=== PATIENT | female | born 1960 | race Caucasian/White ===

== ENCOUNTER → 2016-08-08 | Outpatient (CLI) | payer OTHER ==
[~2016-08-08] MED LIST: 'TENORMIN50 MG PO; A-CILLIN500 MG; ALBUTEROL0.09 MG/A2 IH; AMOXICILLIN500 MG PO; ANAPROX DS550 MG PO; ASPIRIN81 M1 PO; ATENOLOL25 MG PO; ATENOLOL50 MG PO; ATIVAN1 MG PO; AUGMENTIN 875 M1 TA1 PO; AUGMENTIN 875 M1 TAB PO; AUGMENTIN 875875 MG PO; BENADRYL25 MG PO; BIAXIN500 MG PO; BROMOCRIPTINE ME5 MG PO; CELEXA20 MG PO; CEPHULAC10 GM/15 M PO; CIPRO500 MG PO; CLARITIN10 MG PO; COMPAZINE10 MG PO; DOXYCYCLINE MO100 MG PO; FLAGYL500 MG PO; FLONASE 0.05% 121 EA NAS; MACROBID100 M1 PO; MEDROL DOSEPAK4 MG PO; NIX CREME RINSE60 ML TP; NIZORAL 120 ML120 ML TP; PHENERGAN W/DM120 ML PO; PHENERGAN25 M1 PO; PREDNICOT20 MG PO; PROVENTIL0.09 MG/AC IH; SYNTHROID0.05 MG PO; SYNTHROID0.075 MG PO; TOPAMAX25 M3 PO; TRAZADONE HYDR100 MG PO; ULTRAM50 MG PO; VENTOLIN H0.09 MG/AC INH; VIBRAMYCIN100 MG PO; ZANTAC150 MG PO; ZESTRIL5 MG PO; ZITHROMAX Z PA250 MG PO; ZOCOR20 MG PO; ZYRTEC10 MG PO; [UNRECOGNIZED DRUG - REMARK]
== END | disposition home or self-care (01) ==
LOC: US 18:56
DX: M79.89 Other specified soft tissue disorders (principal)

== ENCOUNTER 2016-08-12 18:41 | Inpatient (IN) | payer OTHER ==
[~2016-08-12] VITALS: Ht 167.6 cm; Wt 70.5 kg
--- NOTE | ~2016-08-12 | CON ---
[place], [place] REPORT OF CONSULTATION NAME: MORALES ARCINIEGA UNIT #: [id number] ROOM: 404 DOCTOR: JULIO MCCAULEY ED.D (MELISA) BIRTHDATE: [birth year] DOS: 08/13/2016 HISTORY OF PRESENT ILLNESS: The patient is a 55-year-old female referred by Dr. Dick for an evaluation following an overdose of atenolol. At the present time, she is in the intensive care unit at [facility]. The patient states she is and has 3 children. Her daughter has a heroin addiction issue and one is son in a wheelchair. She has multiple family issues according to her report. She is on SSI, because of her disability. This patient's medical history is pertinent for depression, CVA, Hodgkin's lymphoma, chronic hypothyroidism. Her medications include Synthroid, Topamax, and Ativan. She takes Topamax for her headaches. She does not use any alcoholic beverages or tobacco related products. This patient is awake, alert and oriented in all 3 spheres. Her short and long-term memory is intact, but she reports feeling depressed. She is no longer suicidal, but did admit to taking 60 atenolol because she was overwhelmed by their family situations. She is willing to follow up with outpatient counseling and also medications and she was started on Remeron and Vistaril by Dr. Vázquez. She can follow with me, the family health clinic, the counseling center or Dr. Murillo's office, whichever she chooses. She was familiar with all those facilities. DIAGNOSIS: Major depressive disorder, recurrent. RECOMMENDATIONS: 1. This patient should take medications as prescribed. 2. The patient should follow up outpatient counseling. 3. The patient may be discharged when medically stable. Thank you very much for this consult. JULIO MCCAULEY ED.D CM:CONSTR:REPORT OF CONSULTATION 1209 08/14/16 0018 interface
--- NOTE | ~2016-08-12 | CON ---
[place], [place] REPORT OF CONSULTATION NAME: MORALES ARCINIEGA UNIT #: [id number] ROOM: 404 DOCTOR: RUSSELL PARISI MD BIRTHDATE: [birth year] DOS: 08/13/2016 PSYCHIATRIC CONSULTATION CHIEF COMPLAINT: "I am so depressed. I just didn't think I could go on." HISTORY OF PRESENT ILLNESS: This is a 55-year-old white female who was admitted to the ICU after an intentional overdose. The patient was dropped off in the parking lot of the Emergency Room and was found there crying when she was brought into the Emergency Room, she did report that she took approximately 20 pills of atenolol that were 50 mg each, she states that she did this in an attempt to harm herself because she felt so depressed and disgusted with life. She endorsed poor sleep and appetite, energy, anhedonia, hopeless, helpless feelings, crying spells, and inability to cope with free riding anxiety throughout the day. She denies having gone to see any psychiatrist or counselor in the past, but feels she needs to do so. She is open to having medications added and adjusted. PAST MEDICAL HISTORY: Remarkable for CVA, Hodgkin's lymphoma, thyroid nodule, hyperlipidemia, hypothyroidism and hypertension. MENTAL STATUS: The patient is alert and oriented to person, place, and time. Mood is overwhelmingly depressed. Affect is flat, blunted with a constricted range. There is no hypomania or carmen. There are no acute auditory or visual hallucinations. No delusions or paranoia present. Memory is intact. DIAGNOSIS: Major depression, recurrent and anxiety disorder, not otherwise specified. PLAN: I will start her on Remeron 15 mg at bedtime to rapidly aid sleep and improve appetite and combat depression. We will also utilize hydroxyzine 50 mg t.i.d. as a nonaddicting antianxiety agent. I would suggest she follow up at [facility] with a counselor there of her choice and also follow up with either Kaylee or Jo, nurse practitioners who can monitor her psychiatric medications. RUSSELL PARISI MD CM:CONSTR:REPORT OF CONSULTATION 0848 08/13/16 1126 interface
[2016-08-12 18:56] VITALS: BP 173/88
[2016-08-12 19:06] VITALS: BP 163/93
[2016-08-12 19:13] LABS: BASO # 0.1 10*3/uL (0.0-0.1); BASO % 1.2 % (0.0-1.0); EOS # 0.2 10*3/uL (0.0-0.4); EOS % 2.4 % (1.0-4.0); HEMATOCRIT 40.3 % (37.0-47.0); HEMOGLOBIN 13.5 g/dl (12.0-16.0); LYMPH # 3.6 10*3/uL (1.3-4.4); LYMPH % 39.9 % (27.0-41.0); MEAN CELL VOLUME 92.4 fl (81.0-99.0); MEAN CORPUSCULAR HGB CONC 33.5 g/dl (33.0-37.0); MEAN PLATELET VOLUME 9.8 fl (9.6-12.3); MONO # 0.8 10*3/uL (0.1-1.0); MONO % 9.3 % (3.0-9.0); NEUT # 4.2 10*3/uL (2.3-7.9); PLATELET COUNT AUTOMATED 394 10*3/uL (130-400); RED BLOOD COUNT 4.36 10*6/uL (4.10-5.10); RED CELL DISTRI WIDTH 13.3 % (0-14.5)
[2016-08-12 19:28] LABS: ALBUMIN 3.8 gm/dl (3.1-4.5); ALKALINE PHOSPHATASE 75 U/L (45-117); BILIRUBIN, TOTAL 0.2 mg/dl (0.2-1.0); BUN 16 mg/dl (7-24); CARBON DIOXIDE 26 mmol/L (21-32); CHLORIDE 111 mmol/L (98-107); EST GLOM FILT AFRICAN AMERICAN > 60 ml/min; GLUCOSE 109 mg/dL (65-99); POTASSIUM 3.6 mmol/L (3.5-5.1); SGOT/AST 19 IU/L (3-35); SGPT/ALT 31 U/L (12-78); SODIUM 143 mmol/L (136-145); TOTAL PROTEIN 7.1 gm/dL (6.4-8.2)
[2016-08-12 20:02] LABS: BILIRUBIN NEGATIVE (NEGATIVE); BLOOD TRACE-LYSED (NEGATIVE); CLARITY CLEAR (CLEAR); COLOR YELLOW (YELLOW); GLUCOSE NEGATIVE (NEGATIVE); KETONE NEGATIVE (NEGATIVE); LEUKO ESTERASE 1+ (NEGATIVE); NITRITE NEGATIVE (NEGATIVE); PROTEIN NEGATIVE (NEGATIVE); UROBILINOGEN 0.2 E.U./dl (0.2-1.0)
[2016-08-12 20:09] VITALS: BP 122/73
[2016-08-12 20:09] LABS: BACTERIA 2+; EPITHELIAL CELLS 15-20; RBC 16-20 rbc/hpf (0-2); URINE REFLEX COMMENT YES (NO)
[2016-08-12 20:12] LABS: URINE AMPHETAMINES < 1000 (1000ng/ml); URINE BARBITURATES < 200 (200ng/ml); URINE COCAINE < 300 (300ng/ml)
[2016-08-12 20:31] VITALS: BP 152/80
[2016-08-12 20:41] VITALS: BP 120/100
[2016-08-13] VITALS: BP 113/65
[2016-08-13 04:00] VITALS: BP 112/52
[2016-08-13 05:56] LABS: BASO # 0.1 10*3/uL (0.0-0.1); BASO % 0.9 % (0.0-1.0); EOS # 0.3 10*3/uL (0.0-0.4); HEMATOCRIT 37.5 % (37.0-47.0); HEMOGLOBIN 12.3 g/dl (12.0-16.0); LYMPH % 35.5 % (27.0-41.0); MEAN CELL VOLUME 94.5 fl (81.0-99.0); MEAN CORPUSCULAR HGB CONC 32.8 g/dl (33.0-37.0); MEAN PLATELET VOLUME 10.2 fl (9.6-12.3); MONO # 0.9 10*3/uL (0.1-1.0); MONO % 10.3 % (3.0-9.0); NEUT # 4.3 10*3/uL (2.3-7.9); NEUT % 49.9 % (47.0-73.0); PLATELET COUNT AUTOMATED 379 10*3/uL (130-400); RED BLOOD COUNT 3.97 10*6/uL (4.10-5.10); RED CELL DISTRI WIDTH 13.3 % (0-14.5); WHITE BLOOD COUNT 8.6 10*3/uL (4.8-10.8)
[2016-08-13 06:19] LABS: ALBUMIN 3.1 gm/dl (3.1-4.5); ALKALINE PHOSPHATASE 64 U/L (45-117); BILIRUBIN, TOTAL 0.2 mg/dl (0.2-1.0); BUN 15 mg/dl (7-24); CARBON DIOXIDE 26 mmol/L (21-32); CHLORIDE 114 mmol/L (98-107); CHOLESTEROL 132 mg/dL (<200); EST GLOM FILT AFRICAN AMERICAN > 60 ml/min; GLUCOSE 81 mg/dL (65-99); HDL CHOLESTEROL 46 mg/dl (40-60); LDL CHOLESTEROL 63 mg/dL (9-159); MAGNESIUM 2.1 mg/dL (1.5-2.1); PHOSPHOROUS 3.5 mg/dL (2.5-4.9); POTASSIUM 3.6 mmol/L (3.5-5.1); SGOT/AST 13 IU/L (3-35); SGPT/ALT 24 U/L (12-78); SODIUM 146 mmol/L (136-145); TRIGLYCERIDES 116 mg/dl (<150); VLDL CHOLESTEROL 23 mg/dL (6-40)
[2016-08-13 06:20] LABS: FOLIC ACID 7.06 ng/mL (>5.38); VITAMIN D, 25-HYDROXY 36.4 ng/mL (30-100)
[2016-08-13 08:00] VITALS: BP 144/79
[2016-08-13 12:00] VITALS: BP 150/79
[2016-08-13 16:00] VITALS: BP 104/61
[2016-08-13 20:00] VITALS: BP 101/71
[2016-08-14] VITALS: BP 102/62
[2016-08-14 06:59] LABS: BUN 13 mg/dl (7-24); CARBON DIOXIDE 23 mmol/L (21-32); CHLORIDE 115 mmol/L (98-107); EST GLOM FILT AFRICAN AMERICAN > 60 ml/min; GLUCOSE 83 mg/dL (65-99); POTASSIUM 3.8 mmol/L (3.5-5.1); SODIUM 148 mmol/L (136-145)
[2016-08-14 08:00] VITALS: BP 129/69
[2016-08-14] MEDS ORDERED: ATARAX,VISTARIL50 MG PO (11:11)
[2016-08-14] MEDS ORDERED: MACROBID100 M1 PO (11:11)
[2016-08-14] MEDS ORDERED: MIRTAZAPINE15 M2 PO (11:11)
[2016-08-14 12:00] VITALS: BP 153/61
== END 2016-08-14 14:45 | disposition home or self-care (01) | DRG 918 ==
LOC: ED 18:41 → ICCU 19:46 → EDHOLD 19:46 → ICCU 20:21 → 4E 08-13 11:15
PROVIDERS: Hospitalist; Internal Medicine; Student in an Organized Health Care Education/Training Program
DX: T44.7X2A Poisoning by beta-adrenoreceptor antagonists, intentional self-harm, initial encounter (principal); E44.0 Moderate protein-calorie malnutrition; N39.0 Urinary tract infection, site not specified; F33.9 Major depressive disorder, recurrent, unspecified; E78.5 Hyperlipidemia, unspecified; E03.9 Hypothyroidism, unspecified; F41.9 Anxiety disorder, unspecified; I10 Essential (primary) hypertension; Z88.1 Allergy status to other antibiotic agents; Z88.5 Allergy status to narcotic agent; Z79.82 Long term (current) use of aspirin; Z79.899 Other long term (current) drug therapy; Z86.73 Personal history of transient ischemic attack (TIA), and cerebral infarction without residual deficits; Z85.71 Personal history of Hodgkin lymphoma; Z90.49 Acquired absence of other specified parts of digestive tract; Z90.81 Acquired absence of spleen; Z90.710 Acquired absence of both cervix and uterus; Z98.51 Tubal ligation status; Z72.0 Tobacco use; Z80.1 Family history of malignant neoplasm of trachea, bronchus and lung; Z83.3 Family history of diabetes mellitus; Z82.49 Family history of ischemic heart disease and other diseases of the circulatory system; Z84.89 Family history of other specified conditions; Z68.25 Body mass index [BMI] 25.0-25.9, adult; Y92.89 Other specified places as the place of occurrence of the external cause

== ENCOUNTER 2016-11-18 15:01 | Emergency (ER) | payer OTHER ==
[~2016-11-18] VITALS: Ht 167.6 cm; Wt 74.8 kg
[~2016-11-18 15:01] MED LIST changes: +ATARAX,VISTARIL50 MG PO; +MIRTAZAPINE15 M2 PO
[2016-11-18] MEDS ORDERED: XANAX0.25 MG PO (15:12)
[2016-11-18] MEDS ORDERED: TRAZODONE100 MG PO (15:12)
[2016-11-18] MEDS ORDERED: VITAMIN D1000 IU PO (15:13)
[2016-11-18 15:44] LABS: BASO # 0.1 10*3/uL (0.0-0.1); BASO % 1.1 % (0.0-1.0); EOS # 0.1 10*3/uL (0.0-0.4); EOS % 1.6 % (1.0-4.0); HEMATOCRIT 41.7 % (37.0-47.0); HEMOGLOBIN 13.6 g/dl (12.0-16.0); LYMPH # 3.3 10*3/uL (1.3-4.4); LYMPH % 39.5 % (27.0-41.0); MEAN CELL VOLUME 93.5 fl (81.0-99.0); MEAN CORPUSCULAR HGB 30.5 pg (27.0-31.0); MEAN CORPUSCULAR HGB CONC 32.6 g/dl (33.0-37.0); MEAN PLATELET VOLUME 9.7 fl (9.6-12.3); MONO # 0.8 10*3/uL (0.1-1.0); MONO % 9.1 % (3.0-9.0); NEUT % 48.5 % (47.0-73.0); PLATELET COUNT AUTOMATED 391 10*3/uL (130-400); RED BLOOD COUNT 4.46 10*6/uL (4.10-5.10); RED CELL DISTRI WIDTH 13.3 % (0-14.5); WHITE BLOOD COUNT 8.3 10*3/uL (4.8-10.8)
[2016-11-18 15:51] LABS: INTERNATIONAL NORM RATIO 0.9 (2.0-3.5); PROTHROMBIN TIME 9.7 SECONDS (9.0-12.4)
[2016-11-18 16:00] LABS: ALKALINE PHOSPHATASE 82 U/L (45-117); BILIRUBIN, TOTAL 0.5 mg/dl (0.2-1.0); BUN 9 mg/dl (7-24); CARBON DIOXIDE 25 mmol/L (21-32); CHLORIDE 105 mmol/L (98-107); CPK 98 U/L (26-192); EST GLOM FILT AFRICAN AMERICAN > 60 ml/min; GLUCOSE 86 mg/dL (65-99); LDH 181 U/L (84-246); MAGNESIUM 2.1 mg/dL (1.5-2.1); POTASSIUM 3.3 mmol/L (3.5-5.1); SGOT/AST 24 IU/L (3-35); SGPT/ALT 48 U/L (12-78); SODIUM 141 mmol/L (136-145); TOTAL PROTEIN 7.6 gm/dL (6.4-8.2)
[2016-11-18 16:01] LABS: CKMB 0.7 ng/ml (0.5-3.6); TROPONIN I < 0.015 ng/ml (<0.045)
[2016-11-18 17:15] VITALS: BP 140/74
== END 2016-11-18 20:52 | disposition home or self-care (01) ==
LOC: ED 15:01
PROVIDERS: Physician Assistant
DX: R29.810 Facial weakness (principal); R25.2 Cramp and spasm; Z86.73 Personal history of transient ischemic attack (TIA), and cerebral infarction without residual deficits; Z88.1 Allergy status to other antibiotic agents; Z88.6 Allergy status to analgesic agent; Z79.899 Other long term (current) drug therapy; Z79.82 Long term (current) use of aspirin; Z87.891 Personal history of nicotine dependence

== ENCOUNTER → 2017-02-27 | Outpatient (CLI) | payer OTHER ==
[~2017-02-27] MED LIST changes: +TRAZODONE100 MG PO; +VITAMIN D1000 IU PO; +XANAX0.25 MG PO
== END | disposition home or self-care (01) ==
LOC: US 07:18
DX: R19.00 Intra-abdominal and pelvic swelling, mass and lump, unspecified site (principal); R22.2 Localized swelling, mass and lump, trunk

== ENCOUNTER → 2017-06-16 | Outpatient (CLI) | payer OTHER | END | disposition home or self-care (01) | LOC: MAMMO 16:32 | DX: Z12.31 Encounter for screening mammogram for malignant neoplasm of breast (principal) ==

== ENCOUNTER → 2017-08-07 | Day surgery (SDC) | payer OTHER ==
[~2017-08-07] VITALS: Ht 167.6 cm; Wt 73.5 kg
--- NOTE | ~2017-08-07 | O ---
[place], [place] OPERATIVE NOTE NAME: MORALES ARCINIEGA UNIT #: [id number] ROOM: DOCTOR: DORIE REAL MD BIRTHDATE: [birth year] DOS: 08/07/2017 GASTROENDOSCOPIC REPORT HISTORY OF PRESENT ILLNESS: This is a 56-year-old patient who has presented with chief complaint of colonic screening, undergoing investigation. PAST MEDICAL HISTORY: Associated hypertension and CVAs. PAST SURGICAL HISTORY: Status post cholecystectomy, thyroid splenectomy, tubal ligation. SOCIAL HISTORY: Nonsmoker, nonalcohol consumer. FAMILY HISTORY: Noncontributory. ALLERGIES: TO AVELOX, CIPRO, ZOLOFT, AND CODEINE. PROCEDURE: Today's procedure part of investigation is colonoscopy plus polypectomy. PREMEDICATION: Versed and Diprivan. SCOPE: Olympus folding colonoscope 10L video. REPORT: After putting the patient in left lateral position, application of lubricant to the scope, the scope was introduced. Thereafter, under direct visualization, advanced through the length of colon with some difficulty. Difficulty being retained stool and tortuosity of the colon. This, however overcame with time staking episodes and sessile polypoid lesion in mid transverse colon with piecemeal polypectomy removed. Site had some bleeding, oozing in order to ensure that there would not be further bleeding because the patient has been on aspirin. Two Dura[employer] was placed in the site. These were the samples provided by the [employer]. Air was suctioned out. The patient was extubated, tolerated procedure well. IMPRESSION: Tortuous colon, Retained stool in the right colon; however, we achieved cecal visualization. Sessile polypoid lesion transverse colon, status post piecemeal polypectomy, status post DuraClip placement at the site. PLAN AND DISCUSSION: Withholding aspirin intake at least for 1 week. ACTIVITY: Ad josh. FOLLOWUP: Routinely with you in office, p.r.n. visit with us in [facility]. [place], [place] OPERATIVE NOTE NAME: MORALES ARCINIEGA UNIT #: [id number] ROOM: DOCTOR: DORIE REAL MD BIRTHDATE: [birth year] DORIE REAL MD CM:OPRECORD:OPERATIVE NOTE 1214 1450 ELKIN REAL MD 08/07/17 1449 interface
[2017-08-07 10:45] VITALS: BP 113/72
[2017-08-07 12:09] VITALS: BP 140/67
[2017-08-07 12:25] VITALS: BP 134/71
[2017-08-07 12:36] VITALS: BP 130/68
== END | disposition home or self-care (01) ==
LOC: SDC 07-31 10:15
DX: Z12.11 Encounter for screening for malignant neoplasm of colon (principal); D12.3 Benign neoplasm of transverse colon; I10 Essential (primary) hypertension; Z90.49 Acquired absence of other specified parts of digestive tract; Z90.710 Acquired absence of both cervix and uterus; Z79.899 Other long term (current) drug therapy; E07.9 Disorder of thyroid, unspecified; Z98.51 Tubal ligation status; Z88.8 Allergy status to other drugs, medicaments and biological substances; K63.89 Other specified diseases of intestine; Z86.73 Personal history of transient ischemic attack (TIA), and cerebral infarction without residual deficits

== ENCOUNTER 2019-01-02 14:49 | Emergency (ER) | payer OTHER ==
[~2019-01-02] VITALS: Ht 170.1 cm; Wt 72.6 kg
[2019-01-02 14:51] VITALS: BP 174/88
[2019-01-02] MEDS ORDERED: VIBRAMYCIN100 MG PO (17:15)
[2019-01-02] MEDS ORDERED: MEDROL DOSEPAK4 MG PO (17:15)
== END 2019-01-02 17:18 | disposition home or self-care (01) ==
LOC: ED 14:49
DX: S50.01XA Contusion of right elbow, initial encounter (principal); J20.9 Acute bronchitis, unspecified; F17.200 Nicotine dependence, unspecified, uncomplicated; Z88.1 Allergy status to other antibiotic agents; Z79.899 Other long term (current) drug therapy; Z79.82 Long term (current) use of aspirin; Z90.49 Acquired absence of other specified parts of digestive tract; Z90.710 Acquired absence of both cervix and uterus; W18.09XA Striking against other object with subsequent fall, initial encounter; Y93.89 Activity, other specified; Y92.098 Other place in other non-institutional residence as the place of occurrence of the external cause; Y99.8 Other external cause status

== ENCOUNTER → 2019-01-21 | Outpatient (CLI) | payer OTHER | END | disposition home or self-care (01) | LOC: RAD 10:40 | DX: R60.0 Localized edema (principal); R06.02 Shortness of breath; R05 Cough; J45.909 Unspecified asthma, uncomplicated ==

== ENCOUNTER 2020-03-07 16:30 | Emergency (ER) | payer OTHER ==
[~2020-03-07] VITALS: Ht 170.1 cm; Wt 70.3 kg
[2020-03-07 16:40] VITALS: BP 130/90
[2020-03-07 17:19] LABS: BASO # 0.1 10*3/uL (0.0-0.1); BASO % 1.2 % (0.0-1.0); EOS # 0.3 10*3/uL (0.0-0.4); EOS % 2.6 % (1.0-4.0); HEMATOCRIT 41.4 % (37.0-47.0); LYMPH # 3.7 10*3/uL (1.3-4.4); LYMPH % 38.8 % (27.0-41.0); MEAN CELL VOLUME 94.7 fl (81.0-99.0); MEAN CORPUSCULAR HGB 30.4 pg (27.0-31.0); MEAN CORPUSCULAR HGB CONC 32.1 g/dl (33.0-37.0); MEAN PLATELET VOLUME 9.7 fl (9.6-12.3); MONO # 0.9 10*3/uL (0.1-1.0); NEUT # 4.6 10*3/uL (2.3-7.9); PLATELET COUNT AUTOMATED 469 10*3/uL (130-400); RED BLOOD COUNT 4.37 10*6/uL (4.10-5.10); RED CELL DISTRI WIDTH 13.7 % (0-14.5); WHITE BLOOD COUNT 9.5 10*3/uL (4.8-10.8)
[2020-03-07 17:37] LABS: ALBUMIN 3.6 gm/dl (3.1-4.5); ALKALINE PHOSPHATASE 90 U/L (45-117); BUN 14 mg/dl (7-24); CHLORIDE 112 mmol/L (98-107); LIPASE 66 U/L (73-393); POTASSIUM 3.8 mmol/L (3.5-5.1); SGOT/AST 18 IU/L (3-35); SGPT/ALT 25 U/L (12-78); SODIUM 145 mmol/L (136-145); TOTAL PROTEIN 7.2 gm/dL (6.4-8.2)
[2020-03-07 17:40] LABS: BILIRUBIN Negative (Negative); BLOOD Negative (Negative); CLARITY Clear (Clear); COLOR Yellow (Yellow); GLUCOSE Negative (Negative); KETONE Negative (Negative); LEUKO ESTERASE Negative (Negative); NITRITE Negative (Negative); SPECIFIC GRAVITY 1.015 (1.001-1.030)
[2020-03-07 17:58] LABS: BACTERIA TRACE; MUCOUS 1+; RBC 0-2 rbc/hpf (0-2); WBC 0-2 wbc/hpf (0-5)
[2020-03-07] MEDS ORDERED: DICYCLOMINE HCL10 MG PO (19:44)
== END 2020-03-07 20:06 | disposition home or self-care (01) ==
LOC: ED 16:30
PROVIDERS: Physician Assistant
DX: R10.9 Unspecified abdominal pain (principal); Z88.8 Allergy status to other drugs, medicaments and biological substances; Z79.899 Other long term (current) drug therapy

== ENCOUNTER 2020-04-24 13:24 | Emergency (ER) | payer OTHER ==
[~2020-04-24] VITALS: Wt 68.0 kg
[~2020-04-24 13:24] MED LIST changes: +DICYCLOMINE HCL10 MG PO
[2020-04-24 13:59] VITALS: BP 133/74
[2020-04-24 17:10] LABS: BASO # 0.1 10*3/uL (0.0-0.1); BASO % 0.9 % (0.0-1.0); EOS # 0.2 10*3/uL (0.0-0.4); EOS % 2.1 % (1.0-4.0); HEMATOCRIT 40.2 % (37.0-47.0); LYMPH # 4.3 10*3/uL (1.3-4.4); LYMPH % 41.9 % (27.0-41.0); MEAN CORPUSCULAR HGB 30.3 pg (27.0-31.0); MEAN CORPUSCULAR HGB CONC 31.8 g/dl (33.0-37.0); MONO # 0.9 10*3/uL (0.1-1.0); MONO % 8.7 % (3.0-9.0); NEUT # 4.8 10*3/uL (2.3-7.9); NEUT % 46.3 % (47.0-73.0); PLATELET COUNT AUTOMATED 441 10*3/uL (130-400); RED BLOOD COUNT 4.23 10*6/uL (4.10-5.10); RED CELL DISTRI WIDTH 13.2 % (0-14.5); WHITE BLOOD COUNT 10.4 10*3/uL (4.8-10.8)
[2020-04-24 17:30] LABS: ALBUMIN 3.9 gm/dl (3.1-4.5); ALKALINE PHOSPHATASE 93 U/L (45-117); BUN 7 mg/dl (7-24); CHLORIDE 111 mmol/L (98-107); CREATININE 0.71 mg/dL (0.55-1.02); LIPASE 64 U/L (73-393); POTASSIUM 3.5 mmol/L (3.5-5.1); SGOT/AST 17 IU/L (3-35); SGPT/ALT 27 U/L (12-78); SODIUM 144 mmol/L (136-145); TOTAL PROTEIN 7.3 gm/dL (6.4-8.2)
[2020-04-24 17:31] LABS: TROPONIN I < 0.015 ng/ml (<0.045)
[2020-04-24] MEDS ORDERED: ZITHROMAX250 MG PO (19:00)
[2020-04-24 19:07] LABS: ACT PARTIAL THROMBO TIME 24.1 SECONDS (20.0-32.1); INTERNATIONAL NORM RATIO 0.9 (2.0-3.5)
== END 2020-04-24 19:15 | disposition home or self-care (01) ==
LOC: ED 13:24
PROVIDERS: Emergency Medicine
DX: J18.9 Pneumonia, unspecified organism (principal); Z20.828 Contact with and (suspected) exposure to other viral communicable diseases; Z88.8 Allergy status to other drugs, medicaments and biological substances; Z79.899 Other long term (current) drug therapy

== ENCOUNTER 2020-11-21 11:14 | Emergency (ER) | payer OTHER ==
[~2020-11-21] VITALS: Wt 68.0 kg
[~2020-11-21 11:14] MED LIST changes: +ZITHROMAX250 MG PO
[2020-11-21 11:25] VITALS: BP 125/69
== END 2020-11-21 14:45 | disposition home or self-care (01) ==
LOC: ED 11:14
DX: R51.9 Headache, unspecified (principal); Z86.73 Personal history of transient ischemic attack (TIA), and cerebral infarction without residual deficits; Z88.1 Allergy status to other antibiotic agents; Z79.899 Other long term (current) drug therapy; Z79.82 Long term (current) use of aspirin; Z90.49 Acquired absence of other specified parts of digestive tract; Z98.890 Other specified postprocedural states; Z90.711 Acquired absence of uterus with remaining cervical stump; Z98.51 Tubal ligation status; Z87.891 Personal history of nicotine dependence

== ENCOUNTER → 2021-01-23 | Outpatient (CLI) | payer OTHER | END | disposition home or self-care (01) | LOC: MAMMO 13:00 | PROVIDERS: ATTEND Internal Medicine | DX: N63.10 Unspecified lump in the right breast, unspecified quadrant (principal); N64.89 Other specified disorders of breast ==

== ENCOUNTER 2021-05-04 12:16 | Emergency (ER) | payer OTHER ==
[2021-05-04 12:28] VITALS: BP 200/104
[2021-05-04] MEDS ORDERED: IBUPROFEN600 MG PO (15:00)
== END 2021-05-04 15:10 | disposition home or self-care (01) ==
LOC: ED 12:16
DX: S60.221A Contusion of right hand, initial encounter (principal); S80.02XA Contusion of left knee, initial encounter; S00.93XA Contusion of unspecified part of head, initial encounter; Z88.1 Allergy status to other antibiotic agents; Z79.899 Other long term (current) drug therapy; Z79.82 Long term (current) use of aspirin; Z87.891 Personal history of nicotine dependence; W18.39XA Other fall on same level, initial encounter; Y93.89 Activity, other specified; Y92.89 Other specified places as the place of occurrence of the external cause; Y99.8 Other external cause status

== ENCOUNTER 2021-06-18 17:02 | Emergency (ER) | payer OTHER ==
[~2021-06-18] VITALS: Ht 170.1 cm; Wt 65.8 kg
[~2021-06-18 17:02] MED LIST changes: +IBUPROFEN600 MG PO
[2021-06-18 17:09] VITALS: BP 124/69
[2021-06-18 17:51] LABS: HEMATOCRIT 27.9 % (37.0-47.0); MEAN CELL VOLUME 92.7 fl (81.0-99.0); MEAN CORPUSCULAR HGB 30.6 pg (27.0-31.0); MEAN PLATELET VOLUME 10.6 fl (9.6-12.3); NUCLEATED RED BLOOD CELL 1.9 % (0.0-0.0); PLATELET COUNT AUTOMATED 254 10*3/uL (130-400); RED BLOOD COUNT 3.01 10*6/uL (4.10-5.10); RED CELL DISTRI WIDTH 15.4 % (0-14.5)
[2021-06-18 17:54] LABS: MANUAL DIFF REFLEX YES; WHITE BLOOD COUNT 1.6 10*3/uL (4.8-10.8)
[2021-06-18 18:04] LABS: ALBUMIN 2.8 gm/dl (3.1-4.5); ALKALINE PHOSPHATASE 81 U/L (45-117); BUN 9 mg/dl (7-24); CREATININE 0.66 mg/dL (0.55-1.02); LIPASE 24 U/L (73-393); SGOT/AST 16 IU/L (3-35); SGPT/ALT 25 U/L (12-78); TOTAL PROTEIN 6.7 gm/dL (6.4-8.2)
[2021-06-18 18:22] LABS: ACANTHOCYTES MANY; ATYPICAL LYMPHS 2 % (0-0); BASOPHILS 3 % (0-1); HOWELL-JOLLY BODIES FEW; PLATELET SUFFICIENCY NORMAL (NORMAL); POLYCHROMASIA SLIGHT; SPHEROCYTES FEW; TOTAL CELLS COUNTED 100 #CELLS
[2021-06-18 18:23] LABS: SCHISTOCYTES FEW
[2021-06-18 18:55] LABS: CHLORIDE 105 mmol/L (98-107); POTASSIUM 3.2 mmol/L (3.5-5.1); SODIUM 140 mmol/L (136-145)
[2021-06-18 19:39] LABS: BILIRUBIN Negative (Negative); BLOOD Negative (Negative); CLARITY Clear (Clear); COLOR Yellow (Yellow); GLUCOSE Negative (Negative); KETONE Negative (Negative); LEUKO ESTERASE Negative (Negative); NITRITE Negative (Negative); PH 5.5 (4.5-8.0)
[2021-06-18 19:47] LABS: BACTERIA 3+
== END 2021-06-18 20:36 | disposition home or self-care (01) ==
LOC: ED 17:02
PROVIDERS: Physician Assistant
DX: U07.1 COVID-19 (principal); Z88.1 Allergy status to other antibiotic agents; Z79.899 Other long term (current) drug therapy; Z79.82 Long term (current) use of aspirin; Z90.49 Acquired absence of other specified parts of digestive tract; Z87.891 Personal history of nicotine dependence; Z90.710 Acquired absence of both cervix and uterus

== ENCOUNTER 2021-12-16 15:23 | Emergency (ER) | payer OTHER ==
[~2021-12-16] VITALS: Ht 172.7 cm; Wt 54.4 kg
[2021-12-16 15:40] VITALS: BP 157/99
[2021-12-16] MEDS ORDERED: LORAZEPAM0.5 MG PO (15:41)
[2021-12-16 16:08] LABS: BASO # 0.1 10*3/uL (0.0-0.1); EOS # 0.2 10*3/uL (0.0-0.4); EOS % 2.7 % (1.0-4.0); HEMATOCRIT 40.7 % (37.0-47.0); LYMPH # 2.9 10*3/uL (1.3-4.4); LYMPH % 40.7 % (27.0-41.0); MEAN CELL VOLUME 91.3 fl (81.0-99.0); MEAN CORPUSCULAR HGB CONC 32.9 g/dl (33.0-37.0); MEAN PLATELET VOLUME 9.8 fl (9.6-12.3); MONO # 0.8 10*3/uL (0.1-1.0); MONO % 10.5 % (3.0-9.0); NEUT # 3.2 10*3/uL (2.3-7.9); NEUT % 44.8 % (47.0-73.0); PLATELET COUNT AUTOMATED 506 10*3/uL (130-400); RED BLOOD COUNT 4.46 10*6/uL (4.10-5.10); RED CELL DISTRI WIDTH 14.9 % (0-14.5); WHITE BLOOD COUNT 7.2 10*3/uL (4.8-10.8)
[2021-12-16 16:28] LABS: ALKALINE PHOSPHATASE 113 U/L (45-117); BUN 9 mg/dl (7-24); CHLORIDE 109 mmol/L (98-107); CREATININE 0.79 mg/dL (0.55-1.02); LIPASE 85 U/L (73-393); POTASSIUM 3.5 mmol/L (3.5-5.1); SGOT/AST 16 IU/L (3-35); SGPT/ALT 18 U/L (12-78); SODIUM 141 mmol/L (136-145); TOTAL PROTEIN 7.6 gm/dL (6.4-8.2)
[2021-12-16 17:08] LABS: BILIRUBIN Negative (Negative); BLOOD Negative (Negative); CLARITY Clear (Clear); COLOR Yellow (Yellow); GLUCOSE Negative (Negative); KETONE Negative (Negative); LEUKO ESTERASE 2+ (Negative); NITRITE Negative (Negative); PH 5.5 (4.5-8.0); SPECIFIC GRAVITY <= 1.005 (1.001-1.030); UROBILINOGEN 0.2 E.U./dl (0.0-1.0)
[2021-12-16 17:18] LABS: BACTERIA 2+; WBC 31-40 wbc/hpf (0-5)
[2021-12-16] MEDS ORDERED: PROTONIX40 MG PO (18:50)
== END 2021-12-16 19:04 | disposition home or self-care (01) ==
LOC: ED 15:23
PROVIDERS: Emergency Medicine
DX: K20.90 Esophagitis, unspecified without bleeding (principal); Z85.3 Personal history of malignant neoplasm of breast; Z90.49 Acquired absence of other specified parts of digestive tract; Z90.710 Acquired absence of both cervix and uterus; Z88.1 Allergy status to other antibiotic agents; Z79.899 Other long term (current) drug therapy; Z79.82 Long term (current) use of aspirin; Z90.89 Acquired absence of other organs; Z87.891 Personal history of nicotine dependence

== ENCOUNTER 2022-05-06 10:47 | Emergency (ER) | payer OTHER ==
[~2022-05-06] VITALS: Ht 170.1 cm; Wt 63.5 kg
[~2022-05-06 10:47] MED LIST changes: +LORAZEPAM0.5 MG PO; +PROTONIX40 MG PO
[2022-05-06 11:07] VITALS: BP 109/54
[2022-05-06] MEDS ORDERED: CEPHALEXIN500 M1 PO (11:21)
[2022-05-06] MEDS ORDERED: VALACYCLOVIR500 M1 PO (11:21)
== END 2022-05-06 12:19 | disposition home or self-care (01) ==
LOC: ED 10:47
DX: R21 Rash and other nonspecific skin eruption (principal); Z88.1 Allergy status to other antibiotic agents; Z90.49 Acquired absence of other specified parts of digestive tract; Z90.89 Acquired absence of other organs; Z90.710 Acquired absence of both cervix and uterus; F15.90 Other stimulant use, unspecified, uncomplicated; Z87.891 Personal history of nicotine dependence

== ENCOUNTER → 2022-07-25 | Outpatient (CLI) | payer OTHER ==
[~2022-07-25] MED LIST changes: +CEPHALEXIN500 M1 PO; +VALACYCLOVIR500 M1 PO
== END | disposition home or self-care (01) ==
LOC: US 00:52
PROVIDERS: ATTEND Internal Medicine
DX: M79.604 Pain in right leg (principal); I73.9 Peripheral vascular disease, unspecified

== ENCOUNTER 2022-10-05 15:06 | Emergency (ER) | payer OTHER ==
[2022-10-05 15:30] VITALS: BP 123/61
[2022-10-05] MEDS ORDERED: KENALOG 0.1%80 GM T (16:03)
== END 2022-10-05 16:43 | disposition home or self-care (01) ==
LOC: ED 15:06
DX: L24.9 Irritant contact dermatitis, unspecified cause (principal); Z88.8 Allergy status to other drugs, medicaments and biological substances; Z90.49 Acquired absence of other specified parts of digestive tract; Z98.890 Other specified postprocedural states; Z98.51 Tubal ligation status; Z90.710 Acquired absence of both cervix and uterus; Z87.891 Personal history of nicotine dependence; F19.90 Other psychoactive substance use, unspecified, uncomplicated

== ENCOUNTER → 2023-03-10 | Outpatient (CLI) | payer OTHER ==
[~2023-03-10] MED LIST changes: +KENALOG 0.1%80 GM T
== END | disposition home or self-care (01) ==
LOC: MAMMO 14:00
PROVIDERS: ATTEND Physician Assistant
DX: C50.511 Malignant neoplasm of lower-outer quadrant of right female breast (principal); C50.911 Malignant neoplasm of unspecified site of right female breast

== ENCOUNTER 2023-07-17 17:39 | Emergency (ER) | payer OTHER ==
[~2023-07-17] VITALS: Ht 167.6 cm; Wt 68.0 kg
[2023-07-17] MEDS ORDERED: FAMOTIDINE 50 ML IV ONE (17:55)
[2023-07-17] MEDS ORDERED: SODIUM CHLORIDE 0.9% 1,000 ML IV ONE (17:55)
[2023-07-17 18:14] LABS: BASO # 0.1 10*3/uL (0.0-0.1); EOS # 0.3 10*3/uL (0.0-0.4); EOS % 3.1 % (1.0-4.0); HEMATOCRIT 42.8 % (37.0-47.0); LYMPH # 3.9 10*3/uL (1.3-4.4); LYMPH % 41.4 % (27.0-41.0); MEAN CELL VOLUME 95.5 fl (81.0-99.0); MEAN CORPUSCULAR HGB 30.8 pg (27.0-31.0); MEAN CORPUSCULAR HGB CONC 32.2 g/dl (33.0-37.0); MEAN PLATELET VOLUME 9.6 fl (9.6-12.3); MONO % 10.7 % (3.0-9.0); NEUT # 4.1 10*3/uL (2.3-7.9); NEUT % 43.5 % (47.0-73.0); PLATELET COUNT AUTOMATED 465 10*3/uL (130-400); RED BLOOD COUNT 4.48 10*6/uL (4.10-5.10); RED CELL DISTRI WIDTH 13.3 % (0-14.5); WHITE BLOOD COUNT 9.3 10*3/uL (4.8-10.8)
[2023-07-17 18:40] LABS: ALKALINE PHOSPHATASE 117 U/L (46-116); BUN 9 mg/dl (9-23); CHLORIDE 103 mmol/L (98-107); LIPASE 34 U/L (12-53); POTASSIUM 3.6 mmol/L (3.4-5.1); SGPT/ALT 19 U/L (5-49); TOTAL PROTEIN 7.5 gm/dL (6.0-8.0)
[2023-07-17 18:42] LABS: ACT PARTIAL THROMBO TIME 28.8 SECONDS (20.0-32.1)
[2023-07-17 19:29] VITALS: BP 144/73
[2023-07-17] MEDS ORDERED: Ondansetron Hydrochloride 4 MG/2 ML VIAL IV ONE ×2 (19:35→21:20)
[2023-07-17 20:52] LABS: BILIRUBIN Negative (Negative); BLOOD Trace-Intact (Negative); CLARITY Clear (Clear); COLOR Yellow (Yellow); GLUCOSE Negative (Negative); KETONE Negative (Negative); LEUKO ESTERASE Trace (Negative); NITRITE Negative (Negative); SPECIFIC GRAVITY 1.015 (1.001-1.030)
[2023-07-17 20:57] LABS: BACTERIA 1+; MUCOUS 1+
[2023-07-17] MEDS ORDERED: ONDANSETRON4 MG SL (22:12)
[2023-07-17] MEDS ORDERED: Ondansetron Hydrochloride 4 MG TAB SL ONE (22:25)
== END 2023-07-17 22:36 | disposition home or self-care (01) ==
LOC: ED 17:39
PROVIDERS: Emergency Medicine
DX: B34.9 Viral infection, unspecified (principal); R10.13 Epigastric pain; Z88.1 Allergy status to other antibiotic agents; Z79.899 Other long term (current) drug therapy; Z79.2 Long term (current) use of antibiotics; Z79.82 Long term (current) use of aspirin; Z90.49 Acquired absence of other specified parts of digestive tract; Z90.711 Acquired absence of uterus with remaining cervical stump; Z87.891 Personal history of nicotine dependence

== ENCOUNTER 2024-01-08 13:48 | Emergency (ER) | payer OTHER ==
[~2024-01-08] VITALS: Ht 170.1 cm; Wt 63.5 kg
[~2024-01-08 13:48] MED LIST changes: +ONDANSETRON4 MG SL
[2024-01-08 14:17] VITALS: BP 141/75
[2024-01-08] MEDS ORDERED: PREDNISONE50 MG PO (14:55)
== END 2024-01-08 15:16 | disposition home or self-care (01) ==
LOC: ED 13:48
DX: S00.86XA Insect bite (nonvenomous) of other part of head, initial encounter (principal); R51.9 Headache, unspecified; R07.89 Other chest pain; F15.90 Other stimulant use, unspecified, uncomplicated; Z88.1 Allergy status to other antibiotic agents; Z90.49 Acquired absence of other specified parts of digestive tract; Z98.890 Other specified postprocedural states; Z90.710 Acquired absence of both cervix and uterus; Z98.51 Tubal ligation status; Z87.891 Personal history of nicotine dependence; W57.XXXA Bitten or stung by nonvenomous insect and other nonvenomous arthropods, initial encounter; Y93.89 Activity, other specified; Y92.009 Unspecified place in unspecified non-institutional (private) residence as the place of occurrence of the external cause; Y99.8 Other external cause status

== ENCOUNTER 2024-01-25 16:53 | Emergency (ER) | payer OTHER ==
[~2024-01-25] VITALS: Ht 170.1 cm; Wt 81.6 kg
[~2024-01-25 16:53] MED LIST changes: +PREDNISONE50 MG PO
[2024-01-25 17:00] VITALS: BP 130/72
[2024-01-25 17:30] LABS: BASO # 0.1 10*3/uL (0.0-0.1); BASO % 0.8 % (0.0-1.0); EOS # 0.2 10*3/uL (0.0-0.4); EOS % 2.2 % (1.0-4.0); HEMATOCRIT 39.4 % (37.0-47.0); LYMPH # 3.2 10*3/uL (1.3-4.4); LYMPH % 36.9 % (27.0-41.0); MEAN CELL VOLUME 95.4 fl (81.0-99.0); MEAN CORPUSCULAR HGB 30.8 pg (27.0-31.0); MEAN CORPUSCULAR HGB CONC 32.2 g/dl (33.0-37.0); MEAN PLATELET VOLUME 9.6 fl (9.6-12.3); MONO % 11.7 % (3.0-9.0); NEUT # 4.2 10*3/uL (2.3-7.9); NEUT % 48.1 % (47.0-73.0); PLATELET COUNT AUTOMATED 352 10*3/uL (130-400); RED BLOOD COUNT 4.13 10*6/uL (4.10-5.10); RED CELL DISTRI WIDTH 14.7 % (0-14.5); WHITE BLOOD COUNT 8.7 10*3/uL (4.8-10.8)
[2024-01-25 17:55] LABS: BUN 15 mg/dl (9-23); CHLORIDE 108 mmol/L (98-107); POTASSIUM 3.6 mmol/L (3.4-5.1)
[2024-01-25 18:19] LABS: BILIRUBIN Negative (Negative); BLOOD Negative (Negative); CLARITY Clear (Clear); COLOR Yellow (Yellow); GLUCOSE Negative (Negative); KETONE Negative (Negative); LEUKO ESTERASE 2+ (Negative); NITRITE Negative (Negative); PH 5.5 (4.5-8.0); UROBILINOGEN 0.2 E.U./dl (0.0-1.0)
[2024-01-25] MEDS ORDERED: SODIUM CHLORIDE 0.9% 1,000 ML IV ONE (18:20)
[2024-01-25 18:25] LABS: URINE AMPHETAMINES Negative (1000ng/ml); URINE BARBITURATES Negative (200ng/ml); URINE BENZODIAZEPINES Negative (200ng/ml); URINE CANNABINOIDS (THC) Negative (50ng/ml); URINE COCAINE Negative (300ng/ml); URINE METHADONE Negative (300ng/ml); URINE OPIATES Negative (300ng/ml); URINE PHENCYCLIDINE Negative (25ng/ml)
[2024-01-25 18:28] LABS: WBC 21-30 wbc/hpf (0-5)
[2024-01-25] MEDS ORDERED: Ondansetron4 MG PO (19:00)
== END 2024-01-25 19:09 | disposition home or self-care (01) ==
LOC: ED 16:53
PROVIDERS: Internal Medicine
DX: S00.81XA Abrasion of other part of head, initial encounter (principal); R55 Syncope and collapse; F15.90 Other stimulant use, unspecified, uncomplicated; Z53.29 Procedure and treatment not carried out because of patient's decision for other reasons; Z88.1 Allergy status to other antibiotic agents; Z90.49 Acquired absence of other specified parts of digestive tract; Z98.890 Other specified postprocedural states; Z98.51 Tubal ligation status; Z90.710 Acquired absence of both cervix and uterus; Z87.891 Personal history of nicotine dependence; Z79.899 Other long term (current) drug therapy; W01.198A Fall on same level from slipping, tripping and stumbling with subsequent striking against other object, initial encounter; Y93.89 Activity, other specified; Y92.89 Other specified places as the place of occurrence of the external cause; Y99.8 Other external cause status

== ENCOUNTER 2024-02-15 14:54 | Emergency (ER) | payer OTHER ==
[~2024-02-15] VITALS: Ht 170.1 cm; Wt 61.2 kg
[~2024-02-15 14:54] MED LIST changes: +Ondansetron4 MG PO
[2024-02-15 15:48] VITALS: BP 145/81
[2024-02-15] MEDS ORDERED: SODIUM CHLORIDE 0.9% 1,000 ML IV ONE (16:05)
[2024-02-15 16:12] LABS: BASO # 0.1 10*3/uL (0.0-0.1); BASO % 0.9 % (0.0-1.0); EOS # 0.2 10*3/uL (0.0-0.4); HEMATOCRIT 40.7 % (37.0-47.0); LYMPH # 3.5 10*3/uL (1.3-4.4); LYMPH % 43.4 % (27.0-41.0); MEAN CELL VOLUME 92.3 fl (81.0-99.0); MEAN CORPUSCULAR HGB 30.2 pg (27.0-31.0); MEAN CORPUSCULAR HGB CONC 32.7 g/dl (33.0-37.0); MEAN PLATELET VOLUME 9.3 fl (9.6-12.3); MONO # 0.8 10*3/uL (0.1-1.0); MONO % 9.7 % (3.0-9.0); NEUT # 3.6 10*3/uL (2.3-7.9); NEUT % 43.6 % (47.0-73.0); PLATELET COUNT AUTOMATED 403 10*3/uL (130-400); RED BLOOD COUNT 4.41 10*6/uL (4.10-5.10); RED CELL DISTRI WIDTH 14.3 % (0-14.5); WHITE BLOOD COUNT 8.1 10*3/uL (4.8-10.8)
[2024-02-15 16:28] LABS: ALKALINE PHOSPHATASE 117 U/L (46-116); BUN 15 mg/dl (9-23); CHLORIDE 104 mmol/L (98-107); LIPASE 28 U/L (12-53); POTASSIUM 3.3 mmol/L (3.4-5.1); SGPT/ALT 18 U/L (5-49)
[2024-02-15] MEDS ORDERED: POTASSIUM CHLORIDE 20 MEQ TAB PO ONE (16:50)
[2024-02-15 17:12] LABS: BILIRUBIN Negative (Negative); BLOOD 1+ (Negative); CLARITY Clear (Clear); COLOR Yellow (Yellow); GLUCOSE Negative (Negative); KETONE Negative (Negative); LEUKO ESTERASE 2+ (Negative); NITRITE Negative (Negative); SPECIFIC GRAVITY 1.015 (1.001-1.030)
[2024-02-15 17:27] LABS: BACTERIA 2+; MUCOUS 1+; WBC 31-40 wbc/hpf (0-5)
[2024-02-15] MEDS ORDERED: OMNICEF300 MG PO (17:42)
[2024-02-15] MEDS ORDERED: Ceftriaxone Sodium 1 GM/10 ML SYR IV ONE (17:45)
== END 2024-02-15 18:18 | disposition home or self-care (01) ==
LOC: ED 14:54
PROVIDERS: Nurse Practitioner Family
DX: J06.9 Acute upper respiratory infection, unspecified (principal); Z20.822 Contact with and (suspected) exposure to COVID-19; N39.0 Urinary tract infection, site not specified; F41.9 Anxiety disorder, unspecified; F32.A Depression, unspecified; E78.5 Hyperlipidemia, unspecified; E03.9 Hypothyroidism, unspecified; F15.90 Other stimulant use, unspecified, uncomplicated; Z88.1 Allergy status to other antibiotic agents; Z90.49 Acquired absence of other specified parts of digestive tract; Z98.51 Tubal ligation status; Z90.710 Acquired absence of both cervix and uterus; Z98.890 Other specified postprocedural states; Z87.891 Personal history of nicotine dependence

== ENCOUNTER 2024-03-14 13:45 | Emergency (ER) | payer OTHER ==
[~2024-03-14] VITALS: Wt 63.5 kg
[~2024-03-14 13:45] MED LIST changes: +OMNICEF300 MG PO
[2024-03-14] MEDS ORDERED: ATROPINE SULFATE 1 MG/10 ML SYR IV ONE (14:10)
[2024-03-14] MEDS ORDERED: LORazepam 2 MG/ML VIAL IV ONE (14:15)
[2024-03-14] MEDS ORDERED: Amiodarone Hydrochloride 150 MG,IV 1 EA in DEXTROSE 5% 100 ML IV ONE (14:20)
[2024-03-14] MEDS ORDERED: ROCURONIUM BROMIDE IV ONE (14:30)
[2024-03-14] MEDS ORDERED: PROPOFOL 50 ML IV SCH (14:30)
[2024-03-14] MEDS ORDERED: LORazepam 2 MG/ML VIAL ONE (14:31)
[2024-03-14] MEDS ORDERED: Amiodarone Hydrochloride 150 MG/3 ML VIAL IV ONE (14:34)
[2024-03-14] MEDS ORDERED: DEXTROSE 5% 100 ML IV ONE (14:34)
[2024-03-14 14:35] LABS: HEMATOCRIT 37.2 % (37.0-47.0); MANUAL DIFF REFLEX YES; MEAN CELL VOLUME 95.4 fl (81.0-99.0); MEAN CORPUSCULAR HGB 30.8 pg (27.0-31.0); MEAN CORPUSCULAR HGB CONC 32.3 g/dl (33.0-37.0); MEAN PLATELET VOLUME 10.1 fl (9.6-12.3); NUCLEATED RED BLOOD CELL 0.3 % (0.0-0.0); PLATELET COUNT AUTOMATED 268 10*3/uL (130-400); RED CELL DISTRI WIDTH 14.4 % (0-14.5); WHITE BLOOD COUNT 6.2 10*3/uL (4.8-10.8)
[2024-03-14] MEDS ORDERED: ETOMIDATE 20 MG/10 ML VIAL IV ONE (14:38)
[2024-03-14] MEDS ORDERED: MAGNESIUM SULFATE 100 ML IV ONE (14:40)
[2024-03-14 14:45] LABS: ACT PARTIAL THROMBO TIME 25.1 SECONDS (20.0-32.1)
[2024-03-14 14:48] LABS: BILIRUBIN Negative (Negative); BLOOD Negative (Negative); CLARITY Clear (Clear); COLOR Yellow (Yellow); GLUCOSE Negative (Negative); KETONE Negative (Negative); LEUKO ESTERASE Negative (Negative); NITRITE Negative (Negative); SPECIFIC GRAVITY 1.025 (1.001-1.030)
[2024-03-14] MEDS ORDERED: Amiodarone Hydrochloride 900 MG in DEXTROSE 5% 500 ML IV ONE (14:50)
[2024-03-14 14:51] LABS: POTASSIUM 3.4 mmol/L (3.4-5.1)
[2024-03-14 15:00] LABS: BACTERIA TRACE; FINE GRANULAR CAST 0-2; MUCOUS TRACE; RBC 0-2 rbc/hpf (0-2); WBC 0-2 wbc/hpf (0-5)
[2024-03-14 15:03] LABS: ACANTHOCYTES FEW; BASOPHILS 1 % (0-1); BURR CELLS FEW; PLATELET SUFFICIENCY NORMAL (NORMAL); TOTAL CELLS COUNTED 100 #CELLS
[2024-03-14 15:04] LABS: OVALOCYTES FEW; POLYCHROMASIA SLIGHT
[2024-03-14] MEDS ORDERED: HEPARIN SODIUM 250 ML IV SCH (15:05)
[2024-03-14] MEDS ORDERED: ROCURONIUM BROMIDE 50 MG/5 ML SYRINGE IV ONE (15:15)
[2024-03-14] MEDS ORDERED: SODIUM CHLORIDE 0.9% 1,000 ML IV ONE (15:20)
[2024-03-14 16:14] LABS: ABG O2 SATURATION 86.3 % (94.0-98.0); ARTERIAL BLOOD GAS PO2 68.3 mmHg (83.0-108.0)
[2024-03-14 16:16] LABS: ABG BASE EXCESS -11.4 mmol/L (-2.0-3.0)
[2024-03-14 16:18] LABS: ARTERIAL BLOOD GAS PH 7.114 (7.350-7.450)
[2024-03-14 18:33] VITALS: BP 124/55
[2024-03-16] MEDS ORDERED: ROCURONIUM BROMIDE 50 MG/5 ML SYRINGE IV ONE (10:31)
== END 2024-03-14 20:05 | disposition short-term general hospital (02) ==
LOC: ED 13:45
PROVIDERS: Internal Medicine; Physician Assistant Medical
DX: I21.4 Non-ST elevation (NSTEMI) myocardial infarction (principal); E87.20 Acidosis, unspecified; I44.2 Atrioventricular block, complete; I47.20 Ventricular tachycardia, unspecified; Z88.1 Allergy status to other antibiotic agents; Z79.899 Other long term (current) drug therapy; Z79.2 Long term (current) use of antibiotics; Z79.82 Long term (current) use of aspirin; Z90.49 Acquired absence of other specified parts of digestive tract; Z90.710 Acquired absence of both cervix and uterus; Z87.891 Personal history of nicotine dependence; Z86.73 Personal history of transient ischemic attack (TIA), and cerebral infarction without residual deficits

== ENCOUNTER 2024-04-28 12:11 | Emergency (ER) | payer OTHER ==
[~2024-04-28] VITALS: Ht 170.1 cm; Wt 65.8 kg
[2024-04-28 12:21] VITALS: BP 94/59
[2024-04-28 13:42] LABS: BASO # 0.1 10*3/uL (0.0-0.1); EOS # 0.1 10*3/uL (0.0-0.4); EOS % 1.9 % (1.0-4.0); HEMATOCRIT 36.7 % (37.0-47.0); MEAN CELL VOLUME 96.6 fl (81.0-99.0); MEAN CORPUSCULAR HGB 30.3 pg (27.0-31.0); MEAN CORPUSCULAR HGB CONC 31.3 g/dl (33.0-37.0); MEAN PLATELET VOLUME 9.7 fl (9.6-12.3); MONO # 0.9 10*3/uL (0.1-1.0); MONO % 13.5 % (3.0-9.0); NEUT # 3.4 10*3/uL (2.3-7.9); NEUT % 54.4 % (47.0-73.0); PLATELET COUNT AUTOMATED 345 10*3/uL (130-400); RED CELL DISTRI WIDTH 14.7 % (0-14.5); WHITE BLOOD COUNT 6.3 10*3/uL (4.8-10.8)
[2024-04-28 14:04] LABS: BUN 20 mg/dl (9-23); CHLORIDE 105 mmol/L (98-107); POTASSIUM 3.3 mmol/L (3.4-5.1)
[2024-04-28] MEDS ORDERED: POTASSIUM CHLORIDE 20 MEQ TAB PO ONE (14:20)
[2024-04-28] MEDS ORDERED: ZITHROMAX250 MG PO (14:41)
[2024-04-28] MEDS ORDERED: AZITHROMYCIN 250 MG TAB PO ONE (14:45)
== END 2024-04-28 14:54 | disposition home or self-care (01) ==
LOC: ED 12:11
PROVIDERS: Nurse Practitioner Family
DX: J98.4 Other disorders of lung (principal); Z20.822 Contact with and (suspected) exposure to COVID-19; F15.90 Other stimulant use, unspecified, uncomplicated; Z88.1 Allergy status to other antibiotic agents; Z90.49 Acquired absence of other specified parts of digestive tract; Z98.890 Other specified postprocedural states; Z90.710 Acquired absence of both cervix and uterus; Z87.891 Personal history of nicotine dependence

== ENCOUNTER → 2024-09-06 | Outpatient (CLI) | payer OTHER | END | disposition home or self-care (01) | LOC: CARD 12:39 | PROVIDERS: ATTEND Internal Medicine Cardiovascular Disease | DX: I08.8 Other rheumatic multiple valve diseases (principal); I46.9 Cardiac arrest, cause unspecified ==

== ENCOUNTER 2024-09-23 15:36 | Emergency (ER) | payer OTHER ==
[~2024-09-23] VITALS: Ht 170.1 cm; Wt 68.5 kg
[2024-09-23 15:52] VITALS: BP 166/79
[2024-09-23 16:22] LABS: BASO # 0.1 10*3/uL (0.0-0.1); BASO % 1.1 % (0.0-1.0); EOS # 0.1 10*3/uL (0.0-0.4); EOS % 1.7 % (1.0-4.0); MEAN CELL VOLUME 91.6 fl (81.0-99.0); MEAN CORPUSCULAR HGB 29.3 pg (27.0-31.0); MEAN CORPUSCULAR HGB CONC 31.9 g/dl (33.0-37.0); MEAN PLATELET VOLUME 10.1 fl (9.6-12.3); MONO # 0.8 10*3/uL (0.1-1.0); MONO % 10.8 % (3.0-9.0); NEUT # 3.5 10*3/uL (2.3-7.9); NEUT % 47.2 % (47.0-73.0); PLATELET COUNT AUTOMATED 355 10*3/uL (130-400); RED BLOOD COUNT 3.93 10*6/uL (4.10-5.10); RED CELL DISTRI WIDTH 17.4 % (0-14.5); WHITE BLOOD COUNT 7.4 10*3/uL (4.8-10.8)
[2024-09-23 16:32] LABS: BILIRUBIN Negative (Negative); BLOOD Trace-Lysed (Negative); CLARITY Clear (Clear); COLOR Yellow (Yellow); GLUCOSE Negative (Negative); KETONE Negative (Negative); LEUKO ESTERASE Negative (Negative); NITRITE Negative (Negative); UROBILINOGEN 0.2 E.U./dl (0.0-1.0)
[2024-09-23 16:33] LABS: MUCOUS TRACE
[2024-09-23 16:46] LABS: ALKALINE PHOSPHATASE 101 U/L (46-116); BUN 13 mg/dl (9-23); CHLORIDE 106 mmol/L (98-107); LIPASE 25 U/L (12-53); POTASSIUM 3.3 mmol/L (3.4-5.1); SGPT/ALT 14 U/L (5-49); TOTAL PROTEIN 6.7 gm/dL (6.0-8.0)
[2024-09-23] MEDS ORDERED: POTASSIUM CHLORIDE 20 MEQ TAB PO ONE (17:40)
[2024-09-23] MEDS ORDERED: MACROBID100 M1 PO (17:48)
[2024-09-23] MEDS ORDERED: Nitrofurantoin, Macrocrystal 100 MG 2 CAP ED PACK PO SCH (17:50)
== END 2024-09-23 17:54 | disposition home or self-care (01) ==
LOC: ED 15:36
PROVIDERS: Nurse Practitioner Family
DX: N39.0 Urinary tract infection, site not specified (principal); E87.6 Hypokalemia; R33.9 Retention of urine, unspecified; Z95.0 Presence of cardiac pacemaker; Z88.1 Allergy status to other antibiotic agents; Z79.899 Other long term (current) drug therapy; Z79.82 Long term (current) use of aspirin; Z90.49 Acquired absence of other specified parts of digestive tract; Z90.89 Acquired absence of other organs; Z90.710 Acquired absence of both cervix and uterus; Z87.891 Personal history of nicotine dependence

== ENCOUNTER → 2024-11-30 | Outpatient (CLI) | payer OTHER | END | disposition home or self-care (01) | LOC: US 11-28 11:00 | PROVIDERS: ATTEND Internal Medicine | DX: I65.23 Occlusion and stenosis of bilateral carotid arteries (principal); I63.512 Cerebral infarction due to unspecified occlusion or stenosis of left middle cerebral artery; E04.2 Nontoxic multinodular goiter ==

== ENCOUNTER → 2025-02-22 | Outpatient (CLI) | payer OTHER | END | disposition home or self-care (01) | LOC: US 02:23 | PROVIDERS: ATTEND Internal Medicine | DX: E04.2 Nontoxic multinodular goiter (principal) ==

== ENCOUNTER 2025-03-23 16:20 | Inpatient (IN) | payer OTHER ==
[~2025-03-23] VITALS: Ht 170.1 cm; Wt 67.4 kg
[~2025-03-23 16:20] MED LIST changes: +ATIVAN0.5 MG PO; -LORAZEPAM0.5 MG PO
[2025-03-23 16:41] VITALS: BP 145/80
[2025-03-23] MEDS ORDERED: predniSONE 20 MG TAB PO ONE (16:50)
[2025-03-23] MEDS ORDERED: Albuterol Sulf/Ipratropium 3 ML VIAL NEB ONE (16:50)
[2025-03-23 18:17] LABS: BASO # 0.1 10*3/uL (0.0-0.1); BASO % 0.8 % (0.0-1.0); EOS # 0.1 10*3/uL (0.0-0.4); EOS % 0.5 % (1.0-4.0); MEAN CELL VOLUME 93.1 fl (81.0-99.0); MEAN CORPUSCULAR HGB 28.7 pg (27.0-31.0); MEAN PLATELET VOLUME 9.9 fl (9.6-12.3); MONO # 1.0 10*3/uL (0.1-1.0); MONO % 9.2 % (3.0-9.0); NEUT # 6.2 10*3/uL (2.3-7.9); NEUT % 57.7 % (47.0-73.0); NUCLEATED RED BLOOD CELL 0.0 10*3/uL (0.0-0.0); NUCLEATED RED BLOOD CELL 0.2 % (0.0-0.0); PLATELET COUNT AUTOMATED 352 10*3/uL (130-400); RED CELL DISTRI WIDTH 16.2 % (0-14.5)
[2025-03-23 18:57] LABS: BUN 16 mg/dl (9-23)
[2025-03-23 20:05] VITALS: BP 139/55
[2025-03-23 21:02] VITALS: BP 142/71
[2025-03-23] MEDS ORDERED: ACETAMINOPHEN 325 MG TAB PO PRN (21:20)
[2025-03-23 21:55] VITALS: BP 171/91
[2025-03-23] MEDS ORDERED: ATORVASTATIN CA80 M1 PO (22:39)
[2025-03-23] MEDS ORDERED: BUPROPION HYDR150 M3 PO (22:40)
[2025-03-23] MEDS ORDERED: CITALOPRAM40 MG PO (22:41)
[2025-03-23] MEDS ORDERED: ZETIA10 MG PO (22:41)
[2025-03-23] MEDS ORDERED: Albuterol Sulf/Ipratropium 3 ML VIAL NEB SCH (23:00)
[2025-03-23 23:54] VITALS: BP 161/87
[2025-03-24 02:21] LABS: BILIRUBIN Negative (Negative); BLOOD 2+ (Negative); CLARITY Clear (Clear); COLOR Yellow (Yellow); KETONE Negative (Negative); LEUKO ESTERASE 2+ (Negative); NITRITE Negative (Negative); PH 5.5 (4.5-8.0); SPECIFIC GRAVITY 1.015 (1.001-1.030); UROBILINOGEN 1.0 E.U./dl (0.0-1.0)
[2025-03-24 02:29] LABS: BACTERIA 2+; MUCOUS 1+; WBC 21-30 wbc/hpf (0-5)
[2025-03-24 06:10] LABS: BASO # 0.0 10*3/uL (0.0-0.1); BASO % 0.1 % (0.0-1.0); EOS # 0.0 10*3/uL (0.0-0.4); EOS % 0.0 % (1.0-4.0); MEAN CELL VOLUME 90.7 fl (81.0-99.0); MEAN CORPUSCULAR HGB 28.7 pg (27.0-31.0); MEAN PLATELET VOLUME 10.2 fl (9.6-12.3); MONO # 0.5 10*3/uL (0.1-1.0); MONO % 4.8 % (3.0-9.0); NEUT # 8.3 10*3/uL (2.3-7.9); NEUT % 80.2 % (47.0-73.0); NUCLEATED RED BLOOD CELL 0.0 10*3/uL (0.0-0.0); NUCLEATED RED BLOOD CELL 0.4 % (0.0-0.0); PLATELET COUNT AUTOMATED 303 10*3/uL (130-400); RED CELL DISTRI WIDTH 16.3 % (0-14.5)
[2025-03-24 06:53] LABS: BUN 17 mg/dl (9-23); FREE T4 0.81 ng/dl (0.89-1.76); LDL CHOLESTEROL 50 mg/dL (9-159)
[2025-03-24 07:18] LABS: SGPT/ALT 1439 U/L (5-49)
[2025-03-24 07:34] LABS: VITAMIN D, 25-HYDROXY 60.1 ng/mL (30-100)
[2025-03-24 08:00] VITALS: BP 172/91
[2025-03-24] MEDS ORDERED: FUROSEMIDE 40 MG/4 ML VIAL IV SCH ×2 (10:00→18:00)
[2025-03-24] MEDS ORDERED: methylPREDNISolone sod succ 20 MG IV SCH (10:00)
[2025-03-24] MEDS ORDERED: LEVOTHYROXINE50 MCG PO (10:14)
[2025-03-24] MEDS ORDERED: METOPROLOL SUCCINATE XR 25 MG TAB PO SCH (11:53)
[2025-03-24] MEDS ORDERED: SACUBITRIL/VALSARTAN 24 MG-26 MG TABLET PO SCH (11:53)
[2025-03-24 12:00] VITALS: BP 158/98
[2025-03-24 16:00] VITALS: BP 150/83
[2025-03-24 20:00] VITALS: BP 119/65
[2025-03-24] MEDS ORDERED: ATORVASTATIN CALCIUM 80 MG TAB PO SCH (22:00)
[2025-03-24] MEDS ORDERED: LORazepam 0.5 MG TAB PO SCH (22:00)
[2025-03-25] VITALS: BP 111/64
[2025-03-25 06:16] LABS: BUN 19 mg/dl (9-23); SGPT/ALT 965 U/L (5-49)
[2025-03-25 08:00] VITALS: BP 112/62
[2025-03-25] MEDS ORDERED: ASPIRIN ENTERIC COATED 81 MG TAB PO SCH (10:00)
[2025-03-25] MEDS ORDERED: EZETIMIBE 10 MG TAB PO SCH (10:00)
[2025-03-25] MEDS ORDERED: Vitamin D 1,000 IU TAB (25 MCG) PO SCH (10:00)
[2025-03-25] MEDS ORDERED: CITALOPRAM 20 MG TAB PO SCH (10:00)
[2025-03-25] MEDS ORDERED: POTASSIUM CHLORIDE 20 MEQ TAB PO ONE (10:35)
[2025-03-25] MEDS ORDERED: POTASSIUM CHLORIDE IN WATER 100 ML IV SCH (11:00)
[2025-03-25] MEDS ORDERED: SODIUM CHLORIDE 0.9% 500 ML IV SCH (11:10)
[2025-03-25] MEDS ORDERED: SODIUM CHLORIDE 0.9% 500 ML IV ONE (11:25)
[2025-03-25 12:00] VITALS: BP 103/69
[2025-03-25 16:00] VITALS: BP 92/55
[2025-03-25 20:00] VITALS: BP 97/58
[2025-03-26] VITALS: BP 99/51
[2025-03-26 06:24] LABS: BASO # 0.0 10*3/uL (0.0-0.1); BASO % 0.1 % (0.0-1.0); EOS # 0.0 10*3/uL (0.0-0.4); EOS % 0.0 % (1.0-4.0); MEAN CELL VOLUME 88.6 fl (81.0-99.0); MEAN CORPUSCULAR HGB 28.5 pg (27.0-31.0); MEAN PLATELET VOLUME 10.6 fl (9.6-12.3); MONO # 1.0 10*3/uL (0.1-1.0); MONO % 5.1 % (3.0-9.0); NEUT # 17.4 10*3/uL (2.3-7.9); NEUT % 85.8 % (47.0-73.0); NUCLEATED RED BLOOD CELL 0.2 10*3/uL (0.0-0.0); NUCLEATED RED BLOOD CELL 0.7 % (0.0-0.0); PLATELET COUNT AUTOMATED 344 10*3/uL (130-400); RED CELL DISTRI WIDTH 16.2 % (0-14.5)
[2025-03-26 06:30] LABS: BUN 25 mg/dl (9-23); SGPT/ALT 673 U/L (5-49)
[2025-03-26 08:00] VITALS: BP 100/55
[2025-03-26 12:00] VITALS: BP 124/97
[2025-03-26 16:00] VITALS: BP 101/60
[2025-03-26 20:00] VITALS: BP 97/57
[2025-03-26] MEDS ORDERED: AMOXICILLIN 500 MG CAP PO SCH (22:00)
[2025-03-27] VITALS: BP 92/50
[2025-03-27 06:42] LABS: BASO # 0.0 10*3/uL (0.0-0.1); BASO % 0.1 % (0.0-1.0); EOS # 0.0 10*3/uL (0.0-0.4); EOS % 0.1 % (1.0-4.0); MEAN CELL VOLUME 89.9 fl (81.0-99.0); MEAN CORPUSCULAR HGB 29.0 pg (27.0-31.0); MEAN PLATELET VOLUME 10.7 fl (9.6-12.3); MONO # 1.0 10*3/uL (0.1-1.0); MONO % 6.2 % (3.0-9.0); NEUT # 13.2 10*3/uL (2.3-7.9); NEUT % 81.7 % (47.0-73.0); NUCLEATED RED BLOOD CELL 0.1 10*3/uL (0.0-0.0); NUCLEATED RED BLOOD CELL 0.8 % (0.0-0.0); PLATELET COUNT AUTOMATED 421 10*3/uL (130-400); RED CELL DISTRI WIDTH 16.0 % (0-14.5)
[2025-03-27 07:49] LABS: BUN 25 mg/dl (9-23); SGPT/ALT 625 U/L (5-49)
[2025-03-27 08:00] VITALS: BP 127/70
[2025-03-27] MEDS ORDERED: FUROSEMIDE 40 MG TAB PO ONE ×2 (11:30→13:30)
[2025-03-27 12:00] VITALS: BP 100/56
[2025-03-27 16:00] VITALS: BP 99/63
[2025-03-27 20:00] VITALS: BP 104/61
[2025-03-28] VITALS: BP 96/54
[2025-03-28 06:09] LABS: BASO # 0.0 10*3/uL (0.0-0.1); BASO % 0.1 % (0.0-1.0); EOS # 0.0 10*3/uL (0.0-0.4); EOS % 0.1 % (1.0-4.0); MEAN CELL VOLUME 90.0 fl (81.0-99.0); MEAN CORPUSCULAR HGB 29.0 pg (27.0-31.0); MEAN PLATELET VOLUME 9.9 fl (9.6-12.3); MONO # 1.5 10*3/uL (0.1-1.0); MONO % 7.9 % (3.0-9.0); NEUT # 14.1 10*3/uL (2.3-7.9); NEUT % 76.7 % (47.0-73.0); NUCLEATED RED BLOOD CELL 0.1 10*3/uL (0.0-0.0); NUCLEATED RED BLOOD CELL 0.6 % (0.0-0.0); PLATELET COUNT AUTOMATED 364 10*3/uL (130-400); RED CELL DISTRI WIDTH 16.1 % (0-14.5)
[2025-03-28 06:38] LABS: BUN 21 mg/dl (9-23); SGPT/ALT 441 U/L (5-49)
[2025-03-28 08:00] VITALS: BP 125/91
[2025-03-28] MEDS ORDERED: SPIRONOLACTONE 25 MG TAB PO SCH (10:00)
[2025-03-28] MEDS ORDERED: FUROSEMIDE 40 MG TAB PO SCH (10:00)
[2025-03-28 12:00] VITALS: BP 115/62
[2025-03-28 16:00] VITALS: BP 122/72
[2025-03-28] MEDS ORDERED: ALDACTONE25 MG PO (16:45)
[2025-03-28] MEDS ORDERED: FUROSEMIDE20 M1 PO (16:45)
[2025-03-28] MEDS ORDERED: ENTRESTO 24 MG1 EACH PO (16:45)
[2025-03-28] MEDS ORDERED: METOPROLOL SUCC25 M2 PO (16:45)
[2025-03-29] MEDS ORDERED: FUROSEMIDE 20 MG TAB PO SCH (10:00)
== END 2025-03-28 17:28 | disposition home health service (06) | DRG 291 ==
LOC: ED 16:20 → EDHOLD 20:13 → 4E 20:13 → 5E 03-24 18:07
PROVIDERS: Emergency Medicine; Nurse Practitioner Family; ADMIT Internal Medicine; ATTEND Internal Medicine
DX: I11.0 Hypertensive heart disease with heart failure (principal); I50.23 Acute on chronic systolic (congestive) heart failure; I44.2 Atrioventricular block, complete; J91.8 Pleural effusion in other conditions classified elsewhere; N39.0 Urinary tract infection, site not specified; E87.6 Hypokalemia; K20.90 Esophagitis, unspecified without bleeding; F32.9 Major depressive disorder, single episode, unspecified; E78.5 Hyperlipidemia, unspecified; R73.9 Hyperglycemia, unspecified; R74.01 Elevation of levels of liver transaminase levels; I35.0 Nonrheumatic aortic (valve) stenosis; F41.1 Generalized anxiety disorder; I34.0 Nonrheumatic mitral (valve) insufficiency; D72.829 Elevated white blood cell count, unspecified; B95.2 Enterococcus as the cause of diseases classified elsewhere; I42.9 Cardiomyopathy, unspecified; Z20.822 Contact with and (suspected) exposure to COVID-19; E89.0 Postprocedural hypothyroidism; I25.2 Old myocardial infarction; Z95.0 Presence of cardiac pacemaker; Z88.8 Allergy status to other drugs, medicaments and biological substances; Z79.899 Other long term (current) drug therapy; Z79.01 Long term (current) use of anticoagulants; Z79.2 Long term (current) use of antibiotics; Z79.82 Long term (current) use of aspirin; Z90.81 Acquired absence of spleen; Z90.49 Acquired absence of other specified parts of digestive tract; Z87.891 Personal history of nicotine dependence; Z83.3 Family history of diabetes mellitus; Z86.73 Personal history of transient ischemic attack (TIA), and cerebral infarction without residual deficits; Z82.0 Family history of epilepsy and other diseases of the nervous system; Z82.49 Family history of ischemic heart disease and other diseases of the circulatory system; Z80.1 Family history of malignant neoplasm of trachea, bronchus and lung; Z85.3 Personal history of malignant neoplasm of breast